=== PATIENT | male | born 1960 | race Caucasian/White ===

== ENCOUNTER 2016-10-28 16:02 | Emergency (ER) | payer MEDICAID, OTHER ==
[~2016-10-28] VITALS: Ht 193 cm; Wt 99.8 kg
[~2016-10-28 16:02] MED LIST: BENTYL10 MG ORAL; NKM; ZOFRAN4 M3 ORAL
[2016-10-28] MEDS ORDERED: Lidocaine 1% MPF 10mg/ml 5ml ONE (16:19)
[2016-10-28] MEDS ORDERED: Lidocaine 1% MPF 10mg/ml 5ml IM ONE (16:30)
[2016-10-28] MEDS ORDERED: BACTRIM DS TAB1 EAC1 ORAL ×3 (16:39→18:18)
[2016-10-28 16:40] VITALS: BP 145/85
[2016-10-28 16:45] VITALS: BP 145/85
--- NOTE | 2016-10-28 17:32 | Emergency Room Report ---
History of Present Illness General Chief Complaint: Skin Rash/Abscess Source: Patient Present Illness HPI The patient is a 56-year-old male presenting for possible insect bite to the left hand. The patient states that he first noticed pain and redness to the left hand last night and woke up this morning with swelling to the area. The patient states he is now experiencing an 8/10 dull ache to the area and is worse with touch. The patient denies any other symptoms including nausea, vomiting, fever, chills, dizziness, blurred vision, CP, SOB Allergies: Coded Allergies: No Known Allergies (Unverified , 08/11/16) Patient History Past Medical History: see triage record Pertinent Family History: none Reviewed Nursing Documentation: PMH: Agreed, PSxH: Agreed Nursing Documentation-PMH Past Medical History: No History, Except For Hx Cardiac Problems: Yes - hep c Review of Systems All Other Systems: negative except mentioned in HPI Physical Exam Vital Signs Date Time Temp Pulse Resp B/P Pulse Ox O2 Delivery O2 Flow Rate FiO2 10/28/16 16:12 97.3 93 20 180/105 97 Room Air Sp02 EP Interpretation: reviewed, normal General Appearance: no apparent distress, alert, GCS 15, non-toxic Head: normocephalic, atraumatic Eyes: bilateral eye PERRL, bilateral eye normal inspection Musculoskeletal: back normal, digits/nails normal, gait/station normal, normal range of motion, tender - TTP over L wrist Neurologic: alert, oriented x3, responsive, motor strength/tone normal, sensory intact, speech normal Psychiatric: judgement/insight normal, memory normal, mood/affect normal, no suicidal/homicidal ideation Skin: normal turgor, other - L wrist: 2cm elevated vessicle. TTP. Surrounded by erythema. Central opening. Lymphatic: no adenopathy Procedures Incision and Drainage Incision and Drainage : Consent: Verbal Site: L wrist Blade Size: 11 I & D Procedure: betadine prep, sterile drapes applied, sterile dressing applied Wound Location: upper extremity Wound's Depth, Shape: superficial Wound Length (cm): 2 Wound Explored: contaminated Irrigated w/ Saline (ccs): 100 Anesthesia: 1% Lidocaine Volume Anesthetic (ccs): 2 Splint Applied?: No Sling Applied?: No Patient Tolerated: Well Complications: None Medical Decision Making PA Attestation Dr. Morrow is my supervising physician. Patient management was discussed with my supervising physician Diagnostic Impression: Primary Impression: Abscess ER Course The patient is a 56-year-old male presenting for possible insect bite to the left hand. Ddx considered include but not limited to insect bite, contact dermatitis, eczema, cellulitis, abscess PE: afebrile. NAD L wrist: 2cm vesicle. Fluctuant. TTP. Surrounded by erythema. Central opening. No bleeding or discharge. Betadine prep was used to clean the skin and surrounding area. One percent lidocaine without epinephrine was used to anesthetize the are of planned incision. A #11 blade was used to make an incision in the central area of fluctuance approximately 1/3 the size of the diameter of the abcess. Once the incision was made, purulent material was expressed with blood. Blunt dissection was then used to release loculations and expressed more purulent material. Once only blood appeard to be expressed from the incision, normal saline was used to irrigate the inside of the abscess. The wound was then cleaned and sterile dressing applied. The patient is discharged home with a prescription for Bactrim and will followup with primary care doctor. ER precautions given Last Vital Signs Date Time Temp Pulse Resp B/P Pulse Ox O2 Delivery O2 Flow Rate FiO2 10/28/16 16:45 97.3 89 16 145/85 99 Room Air Status: improved Disposition: HOME, SELF-CARE Condition: Improved Scripts Trimethoprim/Sulfamethoxazole 160/800* (BACTRIM DS TABLET*) 1 Each Tablet 1 TAB ORAL TWICE A DAY, #14 TAB Prov: GLADYS CORONADO 10/28/16 Referrals: [facility],REFERRING (PCP) Patient Instructions: Abscess Additional Instructions: I discussed my findings with the patient. All questions and concerns have been answered. Treatment and medication compliance have been addressed. I advised the patient that they need to follow up with PMD in 3-5 days. Return to ED if symptoms worsen, new symptoms arise, or if needed for any reason. Patient verbalized understanding of discharge instructions. GLADYS CORONADO Oct 28, 2016 17:32
== END 2016-10-28 16:45 | disposition home or self-care (01) ==
LOC: EMR 16:27
DX: L02.512 Cutaneous abscess of left hand (principal)
CPT/HCPCS: 10060

== ENCOUNTER 2016-10-30 12:07 | Inpatient (IN) | payer OTHER ==
[~2016-10-30] VITALS: Ht 193 cm; Wt 99.8 kg
[~2016-10-30 12:07] MED LIST changes: +BACTRIM DS TAB1 EAC1 ORAL
[2016-10-30] MEDS ORDERED: Bacitracin Oint UD TOPIC ONE (12:45)
[2016-10-30] MEDS ORDERED: Ketorolac 30mg Inj IV ONE (12:45)
[2016-10-30] MEDS ORDERED: Vancomycin 1.5gm/D5W 300ml 325 ML IVPB ONE (12:45)
[2016-10-30] MEDS ORDERED: metroNIDAZOLE 500mg 100 ML IV SCH (12:45)
[2016-10-30] MEDS ORDERED: fentaNYL 100 mcg/2 mL IV ONE (12:45)
--- NOTE | 2016-10-30 12:52 | Emergency Room Report ---
History of Present Illness General Chief Complaint: Skin Rash/Abscess Source: Patient Present Illness HPI Patient returns with left arm swelling and redness of L arm with increased pain. Began a couple days ago and is on Bactrim and Keflex. The arm is worsening. Also has some lymph nodes that are swollen and his axilla on that side. His last tetanus was 2011. The pain is worsened. It throbs when he has it dependent. Pain 10/10 aching pressure. No numbness. Some radiation up arm. The patient has hepatitis C. He denies IVDA. Craig - R handed. No INFANTE, NVD, dysuria, back pain, chest pain, cough, SOB. Allergies: Coded Allergies: No Known Allergies (Unverified , 08/11/16) Patient History Past Medical History: see triage record Social History: Denies: drug use, smoking Social History Narrative Craig Reviewed Nursing Documentation: PMH: Agreed, PSxH: Agreed Nursing Documentation-PMH Past Medical History: No History, Except For Hx Cardiac Problems: Yes - hep c Review of Systems All Other Systems: negative except mentioned in HPI Physical Exam Vital Signs Date Time Temp Pulse Resp B/P Pulse Ox O2 Delivery O2 Flow Rate FiO2 10/30/16 12:26 97.9 95 18 147/95 98 Room Air Sp02 EP Interpretation: reviewed, normal General Appearance: well appearing, no apparent distress, GCS 15 Head: normocephalic Eyes: bilateral eye PERRL, bilateral eye normal inspection, bilateral eye other - pupils small ENT: moist mucus membranes Neck: supple Respiratory: lungs clear, normal breath sounds Cardiovascular #1: regular rate, rhythm Cardiovascular #2: 2+ radial (R) Gastrointestinal: normal inspection, normal bowel sounds, non tender, no mass, non-distended Musculoskeletal: back normal, gait/station normal, inflammation, swelling, tender - more volar surface of forearm - TTP - fairly severe. PROM without significant increase in pain. Neurologic: alert, oriented x3, motor strength/tone normal, sensory intact, normal gait, speech normal Psychiatric: mood/affect normal Skin: warm/dry, other - tatoos, L forearm with more volar erythema, no lymphangitis. Area on ulnar volar wrist where I and D performed. Lymphatic: other - Axillary node tender L Medical Decision Making Diagnostic Impression: Primary Impression: Cellulitis of arm, left Additional Impressions: Elevated lactic acid level Outpatient antibiotic failure Sepsis Qualified Codes: A41.9 - Sepsis, unspecified organism ER Course Patient with increased arm pain, erythema and swelling after I and D 2 days ago. Concern over possible necrotizing fasciitis, cellulitis, abscess. No evidence of compartment syndrome at this time. The patient's been taking antibiotics and his arm is worsening. A CT is ordered and along with laboratory. Triple antibiotics are begun. The patient needs IV anabiotic says his outpatient anabiotic regimen has failed. Analgesia also given. Labs remarkable for elevated WBC and lactate. CT with STS, no abscess. Contact Dr. Deal for admission. Contact Dr. Birch for consultation. Laboratory Tests Test 10/30/16 12:45 10/30/16 12:55 10/30/16 13:10 White Blood Count 13.3 K/UL (4.8-10.8) H Red Blood Count 5.05 M/UL (4.70-6.10) Hemoglobin 15.4 G/DL (14.2-18.0) Hematocrit 47.3 % (42.0-52.0) Mean Corpuscular Volume 94 FL (80-99) Mean Corpuscular Hemoglobin 30.5 PG (27.0-31.0) Mean Corpuscular Hemoglobin Concent 32.6 G/DL (32.0-36.0) Red Cell Distribution Width 12.7 % (11.6-14.8) Platelet Count 221 K/UL (150-450) Mean Platelet Volume 7.4 FL (6.5-10.1) Neutrophils (%) (Auto) 70.7 % (45.0-75.0) Lymphocytes (%) (Auto) 15.8 % (20.0-45.0) L Monocytes (%) (Auto) 10.7 % (1.0-10.0) H Eosinophils (%) (Auto) 1.9 % (0.0-3.0) Basophils (%) (Auto) 0.8 % (0.0-2.0) Prothrombin Time 10.2 SEC (9.30-11.50) Prothrombin Time INR 1.0 (0.9-1.1) PTT 29 SEC (23-33) Sodium Level 139 mEQ/L (135-145) Potassium Level 4.0 mEQ/L (3.4-4.9) Chloride Level 98 mEQ/L (98-107) Carbon Dioxide Level 28 mEQ/L (20-30) Anion Gap 13 (5-15) Blood Urea Nitrogen 8 mg/dL (7-23) Creatinine 0.9 mg/dL (0.7-1.2) Estimate Glomerular Filtration Rate > 60 mL/min (>60) Glucose Level 112 mg/dL (74-106) H Lactic Acid Level 3.00 mmol/L (0.66-2.22) H Calcium Level 9.7 mg/dL (8.6-10.2) Total Bilirubin 0.4 mg/dL (0.0-1.2) Aspartate Amino Transferase (AST) 38 U/L (5-40) Alanine Aminotransferase (ALT) 48 U/L (3-41) H Alkaline Phosphatase 109 U/L (40-129) Total Creatine Kinase 61 U/L (38-174) Troponin I < 0.30 ng/mL (<=0.30) Pro-B-Type Natriuretic Peptide 267 pg/mL (0-125) H Total Protein 7.5 g/dL (6.6-8.7) Albumin 3.9 g/dL (3.5-5.2) Globulin 3.6 g/dL Albumin/Globulin Ratio 1.0 (1.0-2.7) Urine Color Yellow Urine Appearance Clear Urine pH 6 (4.5-8.0) Urine Specific [place] 1.015 (1.005-1.035) Urine Protein Negative (NEGATIVE) Urine Glucose (UA) Negative (NEGATIVE) Urine Ketones Negative (NEGATIVE) Urine Occult Blood Negative (NEGATIVE) Urine Nitrite Negative (NEGATIVE) Urine Bilirubin Negative (NEGATIVE) Urine Urobilinogen 4 MG/DL (0.0-1.0) H Urine Leukocyte Esterase 1+ (NEGATIVE) H Urine RBC 0 /HPF (0 - 0) Urine WBC 2-4 /HPF (0 - 0) Urine Squamous Epithelial Cells None /LPF (NONE/OCC) Urine Bacteria None /HPF (NONE) EKG Diagnostic Results Rate: normal Rhythm: NSR ST Segments: no acute changes Rhythm Strip Diag. Results EP Interpretation: yes Rhythm: NSR, no PVC's, no ectopy Chest X-Ray Diagnostic Results EP Interpretation: Yes Findings: no consolidation, no effusion, no pneumothorax, no acute cardiopulmonary disease Number of Views: 1 CT/MRI/US Diagnostic Results CT/MRI/US Diagnostic Results : Imaging Test Ordered: forearm Impression Deep STS Status: improved Disposition: ADMITTED INPATIENT Condition: Serious Moe Lobo M.D. Oct 30, 2016 12:52
[2016-10-30] MEDS ORDERED: Zosyn 4.5gm inj ONE (13:24)
[2016-10-30 13:31] LABS: BASOPHILS % (AUTO) 0.8 % (0.0-2.0); EOSINOPHILS % (AUTO) 1.9 % (0.0-3.0); LYMPHOCYTES % (AUTO) 15.8 % (20.0-45.0); MEAN CORPUSCULAR HEMOGLOBIN 30.5 PG (27.0-31.0); MEAN CORPUSCULAR HGB CONC 32.6 G/DL (32.0-36.0); MEAN CORPUSCULAR VOLUME 94 FL (80-99); MEAN PLATELET VOLUME 7.4 FL (6.5-10.1); MONOCYTES % (AUTO) 10.7 % (1.0-10.0); NEUTROPHILS % (AUTO) 70.7 % (45.0-75.0); PLATELET COUNT 221 K/UL (150-450); RED BLOOD COUNT 5.05 M/UL (4.70-6.10); RED CELL DISTRIBUTION WIDTH 12.7 % (11.6-14.8); WHITE BLOOD COUNT 13.3 K/UL (4.8-10.8)
[2016-10-30 13:35] LABS: PROTHROMBIN TIME 10.2 SEC (9.30-11.50)
[2016-10-30 13:42] LABS: ALANINE AMINOTRANSFERASE 48 U/L (3-41); ANION GAP 13 (5-15); ASPARTATE AMINO TRANSFERASE 38 U/L (5-40); CALCIUM 9.7 mg/dL (8.6-10.2); CARBON DIOXIDE 28 mEQ/L (20-30); CHLORIDE 98 mEQ/L (98-107); CREATININE 0.9 mg/dL (0.7-1.2); GLOMERULAR FILTRATION RATE > 60 mL/min (>60); HEMOLYSIS 5; SODIUM 139 mEQ/L (135-145); TOTAL PROTEIN 7.5 g/dL (6.6-8.7)
[2016-10-30 13:45] LABS: REFLEX LACTIC ACID YES OR NO YES
[2016-10-30 13:51] LABS: TROPONIN I < 0.30 ng/mL (<=0.30)
[2016-10-30] MEDS ORDERED: Piperacillin/Tazobactam 4.5 GM in NS 110 ML IV SCH (14:00)
[2016-10-30 14:07] LABS: APPEARANCE,URINE CLEAR; KETONES,URINE NEGATIVE (NEGATIVE); LEUKOCYTE ESTERASE ,URINE 1+ (NEGATIVE); NITRITE,URINE NEGATIVE (NEGATIVE); PH,URINE 6 (4.5-8.0); PROTEIN,URINE NEGATIVE (NEGATIVE); UROBILINOGEN,URINE 4 MG/DL (0.0-1.0)
[2016-10-30 14:15] LABS: RBC,URINE 0 /HPF (0 - 0)
[2016-10-30 14:30] VITALS: BP 127/72
[2016-10-30] MEDS ORDERED: Naloxone 1mg/ml 2ml ONE ×2 (15:58→16:01)
[2016-10-30 16:09] VITALS: BP 133/68
[2016-10-30 16:30] VITALS: BP 122/70
[2016-10-30] MEDS ORDERED: Zolpidem 5mg tab ORAL PRN (18:30)
[2016-10-30] MEDS ORDERED: Mylanta II UD 30ml ORAL PRN (18:30)
[2016-10-30] MEDS ORDERED: LORazepam Inj 2mg/ml 1ml IV PRN (18:30)
[2016-10-30] MEDS ORDERED: Miralax 17gm pkt ORAL PRN (18:30)
--- NOTE | 2016-10-30 18:31 | Infectious Diseases Prog Note ---
Assessment/Plan Problems: (1) Left arm cellulitis Assessment & Plan: with possible necrotizing fasciitis , recommend immediate surgical consultation for possible surgical debriedment , will start zosyn, vancomycin and clindamycin empirically for now , monitor SED rate (2) Sepsis Assessment & Plan: due to sever arm infection, will send blood culture and start wide spectrum antibiotics therapy (3) HCV (hepatitis C virus) Assessment & Plan: will order viral load and genotype. Subjective Allergies: Coded Allergies: No Known Allergies (Unverified , 08/11/16) Objective Vital Signs Last 24 Hour Vital Signs Date Time Temp Pulse Resp B/P Pulse Ox O2 Delivery O2 Flow Rate FiO2 10/30/16 16:30 96.4 67 18 122/70 100 Room Air 10/30/16 16:11 97.8 76 17 133/68 100 Room Air 10/30/16 16:09 97.8 76 17 133/68 100 Room Air 10/30/16 14:30 97.9 73 19 127/72 100 Room Air 10/30/16 13:56 97.8 10/30/16 13:56 97.8 10/30/16 12:26 97.9 95 18 147/95 98 Room Air Height (Feet): 6 Height (Inches): 4.00 Weight (Pounds): 220 Laboratory Tests Test 10/30/16 12:45 10/30/16 12:55 10/30/16 13:10 10/30/16 15:18 White Blood Count 13.3 K/UL (4.8-10.8) H Red Blood Count 5.05 M/UL (4.70-6.10) Hemoglobin 15.4 G/DL (14.2-18.0) Hematocrit 47.3 % (42.0-52.0) Mean Corpuscular Volume 94 FL (80-99) Mean Corpuscular Hemoglobin 30.5 PG (27.0-31.0) Mean Corpuscular Hemoglobin Concent 32.6 G/DL (32.0-36.0) Red Cell Distribution Width 12.7 % (11.6-14.8) Platelet Count 221 K/UL (150-450) Mean Platelet Volume 7.4 FL (6.5-10.1) Neutrophils (%) (Auto) 70.7 % (45.0-75.0) Lymphocytes (%) (Auto) 15.8 % (20.0-45.0) L Monocytes (%) (Auto) 10.7 % (1.0-10.0) H Eosinophils (%) (Auto) 1.9 % (0.0-3.0) Basophils (%) (Auto) 0.8 % (0.0-2.0) Prothrombin Time 10.2 SEC (9.30-11.50) Prothromb Time International Ratio 1.0 (0.9-1.1) Activated Partial Thromboplast Time 29 SEC (23-33) Sodium Level 139 mEQ/L (135-145) Potassium Level 4.0 mEQ/L (3.4-4.9) Chloride Level 98 mEQ/L (98-107) Carbon Dioxide Level 28 mEQ/L (20-30) Anion Gap 13 (5-15) Blood Urea Nitrogen 8 mg/dL (7-23) Creatinine 0.9 mg/dL (0.7-1.2) Estimat Glomerular Filtration Rate > 60 mL/min (>60) Glucose Level 112 mg/dL (74-106) H Lactic Acid Level 3.00 mmol/L (0.66-2.22) H 0.90 mmol/L (0.66-2.22) Calcium Level 9.7 mg/dL (8.6-10.2) Total Bilirubin 0.4 mg/dL (0.0-1.2) Aspartate Amino Transf (AST/SGOT) 38 U/L (5-40) Alanine Aminotransferase (ALT/SGPT) 48 U/L (3-41) H Alkaline Phosphatase 109 U/L (40-129) Total Creatine Kinase 61 U/L (38-174) Troponin I < 0.30 ng/mL (<=0.30) Pro-B-Type Natriuretic Peptide 267 pg/mL (0-125) H Total Protein 7.5 g/dL (6.6-8.7) Albumin 3.9 g/dL (3.5-5.2) Globulin 3.6 g/dL Albumin/Globulin Ratio 1.0 (1.0-2.7) Urine Color Yellow Urine Appearance Clear Urine pH 6 (4.5-8.0) Urine Specific [place] 1.015 (1.005-1.035) Urine Protein Negative (NEGATIVE) Urine Glucose (UA) Negative (NEGATIVE) Urine Ketones Negative (NEGATIVE) Urine Occult Blood Negative (NEGATIVE) Urine Nitrite Negative (NEGATIVE) Urine Bilirubin Negative (NEGATIVE) Urine Urobilinogen 4 MG/DL (0.0-1.0) H Urine Leukocyte Esterase 1+ (NEGATIVE) H Urine RBC 0 /HPF (0 - 0) Urine WBC 2-4 /HPF (0 - 0) Urine Squamous Epithelial Cells None /LPF (NONE/OCC) Urine Bacteria None /HPF (NONE) Current Medications Medications (Trade) Dose Ordered Sig/Aubrey Route PRN Reason Start Time Stop Time Status Last Admin Dose Admin Acetaminophen (Tylenol) 650 mg Q4H PRN ORAL fever 10/30/16 18:30 11/29/16 18:29 Al Hydroxide/Mg Hydroxide (Mylanta II) 30 ml Q6H PRN ORAL dyspepsia 10/30/16 18:30 11/29/16 18:29 Cefepime HCl/ Dextrose (Maxipime/D5W) 55 ml @ 110 mls/hr EVERY 8 HOURS IV 10/30/16 22:00 11/06/16 21:59 Dextrose (Dextrose 50%) STAT PRN IV Hypoglycemia 10/30/16 18:30 11/29/16 18:29 Heparin Sodium (Porcine) (Heparin 5000 units/ml) 5,000 units EVERY 12 HOURS SUBQ 10/30/16 21:00 11/29/16 20:59 Lorazepam (Ativan 2mg/ml 1ml) 0.5 mg Q4H PRN IV For Anxiety 10/30/16 18:30 11/06/16 18:29 Morphine Sulfate (Morphine Sulfate) 1 mg Q4H PRN IVP For Pain 10/30/16 18:45 11/06/16 18:44 Ondansetron HCl (Zofran) 4 mg Q6H PRN IVP Nausea & Vomiting 10/30/16 18:30 11/29/16 18:29 Polyethylene Glycol (Miralax) 17 gm HSPRN PRN ORAL Constipation 10/30/16 18:30 11/29/16 18:29 Vancomycin HCl 1 ea 1 ea DAILY PRN MISC Per rx protocol 10/30/16 18:30 11/29/16 18:29 UNV Zolpidem Tartrate (Ambien) 5 mg HSPRN PRN ORAL Insomnia 10/30/16 18:30 11/29/16 18:29 Tashi Rinaldi M.D. Oct 30, 2016 18:31
[2016-10-30] MEDS: Morphine Sulfate 2mg/ml Inj IVP PRN (19:36)
[2016-10-30 20:00] VITALS: BP 149/79
[2016-10-30] MEDS: Vitamin A&D Oint 2oz Tube TOPIC SCH (21:00)
[2016-10-30] MEDS ORDERED: Vitamin A&D Oint 2oz Tube TOPIC SCH (21:00)
--- NOTE | 2016-10-30 21:05 | Wound Care Consultation ---
Wound Assessment Wound Assessment : Wound Present on Admission: Yes New Wound: No Status Change of Wound: No Wound Location Body Site Modif: right Wound Location Body Site: wrist Wound Type: abscess - cellulitis of the left arm Jose A Test: Does not Jose A Abscess: Boil Wound Length: 3.0 Wound Width: 3.0 Wound Drainage Description: Serosanguineous Wound Drainage Amount: Moderate Tissue Surrounding Wound: Erythemic Wound General Appearance: Reddened, Draining Wound Comment #1 Left arm cellulitis with open abscess on the wrist. Pt on IV ATB therapy for cellulitis of the left arm. Recommendation -Keep clean and dry -Cleanse with saline pat dry apply adaptic cover with dry drg -Assess and f/u with MD for any changes LIAM PEÑA RN Oct 30, 2016 21:05
[2016-10-30] MEDS: Clindamycin 900mg 50 ML IV SCH (21:08)
[2016-10-30] MEDS: Heparin 5000 units/ml inj SUBQ SCH (21:19)
[2016-10-30] MEDS: Vancomycin 1.25 GM in D5W 275 ML IVPB SCH (21:52)
[2016-10-30] MEDS ORDERED: Cefepime HCl 1 GM in D5W 55 ML IV SCH (22:00)
[2016-10-30] MEDS: Piperacillin/Tazobactam 4.5 GM in D5W 110 ML IVPB SCH (23:40)
[2016-10-31] VITALS: BP 141/79
[2016-10-31] MEDS: Clindamycin 900mg 50 ML IV SCH ×3 (03:08→19:57)
[2016-10-31 04:00] VITALS: BP 139/78
[2016-10-31] MEDS: Vancomycin 1.25 GM in D5W 275 ML IVPB SCH (04:05)
[2016-10-31] MEDS: Piperacillin/Tazobactam 4.5 GM in D5W 110 ML IVPB SCH ×3 (06:42→23:18)
[2016-10-31 06:53] LABS: BASOPHILS % (AUTO) 0.8 % (0.0-2.0); EOSINOPHILS % (AUTO) 5.1 % (0.0-3.0); LYMPHOCYTES % (AUTO) 21.3 % (20.0-45.0); MEAN CORPUSCULAR HEMOGLOBIN 31.3 PG (27.0-31.0); MEAN CORPUSCULAR HGB CONC 33.6 G/DL (32.0-36.0); MEAN CORPUSCULAR VOLUME 93 FL (80-99); MEAN PLATELET VOLUME 7.1 FL (6.5-10.1); MONOCYTES % (AUTO) 10.1 % (1.0-10.0); NEUTROPHILS % (AUTO) 62.8 % (45.0-75.0); PLATELET COUNT 198 K/UL (150-450); RED BLOOD COUNT 4.36 M/UL (4.70-6.10); RED CELL DISTRIBUTION WIDTH 12.4 % (11.6-14.8); WHITE BLOOD COUNT 9.3 K/UL (4.8-10.8)
[2016-10-31 07:06] LABS: ALANINE AMINOTRANSFERASE 41 U/L (3-41); ANION GAP 13 (5-15); ASPARTATE AMINO TRANSFERASE 36 U/L (5-40); CALCIUM 8.9 mg/dL (8.6-10.2); CARBON DIOXIDE 27 mEQ/L (20-30); CHLORIDE 99 mEQ/L (98-107); CHOLESTEROL 140 mg/dL (< 200); CHOLESTEROL/HDL RATIO 1.7 (3.3-4.4); CREATININE 0.9 mg/dL (0.7-1.2); GLOMERULAR FILTRATION RATE > 60 mL/min (>60); HEMOLYSIS 9; LDL CHOLESTEROL (CALC.) 52 mg/dL (60-99); POTASSIUM 4.3 mEQ/L (3.4-4.9); SODIUM 139 mEQ/L (135-145); TOTAL PROTEIN 6.4 g/dL (6.6-8.7)
[2016-10-31 08:00] VITALS: BP 136/82
[2016-10-31 08:01] LABS: HEMOGLOBIN A1C 5.4 % (< 6.0)
[2016-10-31] MEDS: Morphine Sulfate 2mg/ml Inj IVP PRN (08:47)
[2016-10-31] MEDS: Heparin 5000 units/ml inj SUBQ SCH ×2 (08:50→20:57)
[2016-10-31] MEDS: Vitamin A&D Oint 2oz Tube TOPIC SCH ×2 (08:51→20:52)
--- NOTE | 2016-10-31 08:56 | Consultation ---
Consult Note Consult Note 56 yo male with small skin abrasion lft volar wrist, now with Rt UE cellulitis. improving on IV abx No abscess noted on CT Assessment/Plan Lft UE cellulitis without fluid collection/abscess rec non operative tx continue iv abx per ANIYAH WASHINGTON Oct 31, 2016 08:55
--- NOTE | 2016-10-31 10:11 | Diagnostic Imaging Report ---
Indication: Chest pain, cough Technique: One view of the chest Comparison: none Findings: Lungs and pleural spaces are clear. Heart size is normal. Impression: No acute process This agrees with the preliminary interpretation provided by the emergency room physician
[2016-10-31 12:00] VITALS: BP 149/79
--- NOTE | 2016-10-31 12:07 | Consultation ---
History of Present Illness General Date patient seen: Oct 31, 2016 Chief Complaint: Skin Rash/Abscess Referring physician: Dr Deal Reason for Consultation: Sepsis Present Illness HPI 56 yo man with pmhx hepatitis C, urinary tract infection, and left arm abscess incalcitrant to home antibiotics, patient presented to [facility] emergency room after experiencing increasing pain and swelling fever and chills probably as a result of worsening left arm abscess. The patient's hospitalist asked me to consult on this case due the severity of the patients illness and multiple complicating medical co-morbidities. Empiric IV antibiotics have been initiated with anti-pyretics and agressive fluid resuscitation to maintain a physiologically acceptable blood pressure. commercial specialist also has been requested aswell as infectious disease to help treat the patients serious medical condition. Allergies: Coded Allergies: No Known Allergies (Unverified , 08/11/16) Medication History Scheduled Amoxicillin/Potassium Clav 875-125* (Augmentin 875-125 Tablet*), 1 TAB ORAL TWICE A DAY, (Reported) Doxycycline Monohydrate* (Doxycycline Monohydrate*), 100 MG ORAL TWICE A DAY, ( Reported) Patient History Healthcare decision maker N Resuscitation status Full Code Advanced Directive on File Past Medical/Surgical History Past Medical/Surgical History: (1) Abscess (2) HCV (hepatitis C virus) (3) Left arm cellulitis (4) Sepsis (5) UTI (urinary tract infection) Review of Systems Constitutional: Reports: chills, fever, malaise, weakness Musculoskeletal: Reports: joint pain, joint swelling, muscle pain, muscle stiffness Physical Exam General Appearance: lethargic, confused, moderate distress Lines, tubes and drains: peripheral HEENT: normocephalic, atraumatic, anicteric, PERRL Neck: non-tender, normal alignment, supple, normal inspection Respiratory/Chest: chest wall non-tender, normal breath sounds, no respiratory distress, no accessory muscle use Breasts: no masses Cardiovascular/Chest: no JVD, tachycardia Abdomen: normal bowel sounds, non tender, soft, no organomegaly Genitourinary/Rectal: normal genital exam, normal rectal exam Extremities: inflammation, moderate edema, other - left arm abscess and inflammation and swelling Skin Exam: palled, rash 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, responsive, disoriented Last 24 Hour Vital Signs Date Time Temp Pulse Resp B/P Pulse Ox O2 Delivery O2 Flow Rate FiO2 10/31/16 09:17 97.5 10/31/16 08:00 97.5 80 18 136/82 96 Room Air 10/31/16 04:00 97.8 92 18 139/78 97 Room Air 10/31/16 00:00 97.7 91 18 141/79 95 Room Air 10/30/16 20:00 97.3 73 20 149/79 100 Room Air 10/30/16 16:30 96.4 67 18 122/70 100 Room Air 10/30/16 16:11 97.8 76 17 133/68 100 Room Air 10/30/16 16:09 97.8 76 17 133/68 100 Room Air 10/30/16 14:30 97.9 73 19 127/72 100 Room Air 10/30/16 13:56 97.8 10/30/16 13:56 97.8 10/30/16 12:26 97.9 95 18 147/95 98 Room Air Intake and Output 10/30/16 10/31/16 19:00 07:00 Intake Total 3535 ml 1267.50 ml Balance 3535 ml 1267.50 ml Intake Oral 0 ml 810 ml IV Total 3535 ml 457.50 ml # Voids 3 Laboratory Tests Test 10/30/16 12:45 10/30/16 12:55 10/30/16 13:10 10/30/16 15:18 White Blood Count 13.3 K/UL (4.8-10.8) H Red Blood Count 5.05 M/UL (4.70-6.10) Hemoglobin 15.4 G/DL (14.2-18.0) Hematocrit 47.3 % (42.0-52.0) Mean Corpuscular Volume 94 FL (80-99) Mean Corpuscular Hemoglobin 30.5 PG (27.0-31.0) Mean Corpuscular Hemoglobin Concent 32.6 G/DL (32.0-36.0) Red Cell Distribution Width 12.7 % (11.6-14.8) Platelet Count 221 K/UL (150-450) Mean Platelet Volume 7.4 FL (6.5-10.1) Neutrophils (%) (Auto) 70.7 % (45.0-75.0) Lymphocytes (%) (Auto) 15.8 % (20.0-45.0) L Monocytes (%) (Auto) 10.7 % (1.0-10.0) H Eosinophils (%) (Auto) 1.9 % (0.0-3.0) Basophils (%) (Auto) 0.8 % (0.0-2.0) Prothrombin Time 10.2 SEC (9.30-11.50) Prothromb Time International Ratio 1.0 (0.9-1.1) Activated Partial Thromboplast Time 29 SEC (23-33) Sodium Level 139 mEQ/L (135-145) Potassium Level 4.0 mEQ/L (3.4-4.9) Chloride Level 98 mEQ/L (98-107) Carbon Dioxide Level 28 mEQ/L (20-30) Anion Gap 13 (5-15) Blood Urea Nitrogen 8 mg/dL (7-23) Creatinine 0.9 mg/dL (0.7-1.2) Estimat Glomerular Filtration Rate > 60 mL/min (>60) Glucose Level 112 mg/dL (74-106) H Lactic Acid Level 3.00 mmol/L (0.66-2.22) H 0.90 mmol/L (0.66-2.22) Calcium Level 9.7 mg/dL (8.6-10.2) Total Bilirubin 0.4 mg/dL (0.0-1.2) Aspartate Amino Transf (AST/SGOT) 38 U/L (5-40) Alanine Aminotransferase (ALT/SGPT) 48 U/L (3-41) H Alkaline Phosphatase 109 U/L (40-129) Total Creatine Kinase 61 U/L (38-174) Troponin I < 0.30 ng/mL (<=0.30) Pro-B-Type Natriuretic Peptide 267 pg/mL (0-125) H Total Protein 7.5 g/dL (6.6-8.7) Albumin 3.9 g/dL (3.5-5.2) Globulin 3.6 g/dL Albumin/Globulin Ratio 1.0 (1.0-2.7) Urine Color Yellow Urine Appearance Clear Urine pH 6 (4.5-8.0) Urine Specific [place] 1.015 (1.005-1.035) Urine Protein Negative (NEGATIVE) Urine Glucose (UA) Negative (NEGATIVE) Urine Ketones Negative (NEGATIVE) Urine Occult Blood Negative (NEGATIVE) Urine Nitrite Negative (NEGATIVE) Urine Bilirubin Negative (NEGATIVE) Urine Urobilinogen 4 MG/DL (0.0-1.0) H Urine Leukocyte Esterase 1+ (NEGATIVE) H Urine RBC 0 /HPF (0 - 0) Urine WBC 2-4 /HPF (0 - 0) Urine Squamous Epithelial Cells None /LPF (NONE/OCC) Urine Bacteria None /HPF (NONE) Test 10/31/16 05:10 10/31/16 10:45 White Blood Count 9.3 K/UL (4.8-10.8) Red Blood Count 4.36 M/UL (4.70-6.10) L Hemoglobin 13.7 G/DL (14.2-18.0) L Hematocrit 40.7 % (42.0-52.0) L Mean Corpuscular Volume 93 FL (80-99) Mean Corpuscular Hemoglobin 31.3 PG (27.0-31.0) H Mean Corpuscular Hemoglobin Concent 33.6 G/DL (32.0-36.0) Red Cell Distribution Width 12.4 % (11.6-14.8) Platelet Count 198 K/UL (150-450) Mean Platelet Volume 7.1 FL (6.5-10.1) Neutrophils (%) (Auto) 62.8 % (45.0-75.0) Lymphocytes (%) (Auto) 21.3 % (20.0-45.0) Monocytes (%) (Auto) 10.1 % (1.0-10.0) H Eosinophils (%) (Auto) 5.1 % (0.0-3.0) H Basophils (%) (Auto) 0.8 % (0.0-2.0) Erythrocyte Sedimentation Rate 22 MM/HR (0-20) H Sodium Level 139 mEQ/L (135-145) Potassium Level 4.3 mEQ/L (3.4-4.9) Chloride Level 99 mEQ/L (98-107) Carbon Dioxide Level 27 mEQ/L (20-30) Anion Gap 13 (5-15) Blood Urea Nitrogen 12 mg/dL (7-23) Creatinine 0.9 mg/dL (0.7-1.2) Estimat Glomerular Filtration Rate > 60 mL/min (>60) Glucose Level 131 mg/dL (74-106) H Hemoglobin A1c 5.4 % (< 6.0) Calcium Level 8.9 mg/dL (8.6-10.2) Total Bilirubin 0.3 mg/dL (0.0-1.2) Aspartate Amino Transf (AST/SGOT) 36 U/L (5-40) Alanine Aminotransferase (ALT/SGPT) 41 U/L (3-41) Alkaline Phosphatase 97 U/L (40-129) Total Protein 6.4 g/dL (6.6-8.7) L Albumin 3.3 g/dL (3.5-5.2) L Globulin 3.1 g/dL Albumin/Globulin Ratio 1.0 (1.0-2.7) Triglycerides Level 35 mg/dL (< 150) Cholesterol Level 140 mg/dL (< 200) LDL Cholesterol 52 mg/dL (60-99) L HDL Cholesterol 81 mg/dL (> 60) H Cholesterol/HDL Ratio 1.7 (3.3-4.4) L Thyroid Stimulating Hormone (TSH) 2.290 uIU/mL (0.300-4.500) Vancomycin Level Trough 10.1 ug/mL (5.0-12.0) Height (Feet): 6 Height (Inches): 4.00 Weight (Pounds): 220 Medications Current Medications Medications (Trade) Dose Ordered Sig/Aubrey Route PRN Reason Start Time Stop Time Status Last Admin Dose Admin Acetaminophen (Tylenol) 650 mg Q4H PRN ORAL fever 10/30/16 18:30 11/29/16 18:29 Al Hydroxide/Mg Hydroxide (Mylanta II) 30 ml Q6H PRN ORAL dyspepsia 10/30/16 18:30 11/29/16 18:29 Clindamycin HCl/ Dextrose (Cleocin 900mg) 50 ml @ 100 mls/hr Q8H IV 10/30/16 20:00 11/06/16 19:59 10/31/16 03:08 Dextrose (Dextrose 50%) STAT PRN IV Hypoglycemia 10/30/16 18:30 11/29/16 18:29 Heparin Sodium (Porcine) (Heparin 5000 units/ml) 5,000 units EVERY 12 HOURS SUBQ 10/30/16 21:00 11/29/16 20:59 10/31/16 08:50 Lorazepam (Ativan 2mg/ml 1ml) 0.5 mg Q4H PRN IV For Anxiety 10/30/16 18:30 11/06/16 18:29 Morphine Sulfate (Morphine Sulfate) 1 mg Q4H PRN IVP For Pain 10/30/16 18:45 11/06/16 18:44 10/31/16 08:47 Ondansetron HCl (Zofran) 4 mg Q6H PRN IVP Nausea & Vomiting 10/30/16 18:30 11/29/16 18:29 Piperacillin Sod/ Tazobactam Sod 4.5 gm/Dextrose 110 ml @ 27.5 mls/hr EVERY 8 HOURS IVPB 10/30/16 22:00 11/04/16 21:59 10/31/16 06:42 Polyethylene Glycol (Miralax) 17 gm HSPRN PRN ORAL Constipation 10/30/16 18:30 11/29/16 18:29 Vancomycin HCl 1 ea 1 ea DAILY PRN MISC Per rx protocol 10/30/16 18:30 11/29/16 18:29 Vancomycin HCl/ Dextrose (Vancomycin/D5W) 325 ml @ 162.5 mls/ hr Q8HR@0400,1200,2000 IVPB 10/31/16 13:00 11/05/16 12:59 Vitamin A/Vitamin D 1 applic 1 applic EVERY 12 HOURS TOPIC 10/30/16 21:00 11/29/16 20:59 10/31/16 08:51 Zolpidem Tartrate (Ambien) 5 mg HSPRN PRN ORAL Insomnia 10/30/16 18:30 11/29/16 18:29 Assessment/Plan Status: stable, progressing Assessment/Plan Assessment/Plan Assessment/Plan Assessment Sepsis Necrotizing fasciatis? L arm abscess Hepatitis C Plan IV Multiple Broad Spectrum Antbx Wound Care Infectious Specialist requested Tight BP and BG control CT scan results examined Welding Machine Setter requested LOBITO AZUL Oct 31, 2016 12:07
--- NOTE | 2016-10-31 12:08 | Consultation ---
DATE OF CONSULTATION: Admitted to Dr. Bradley Deal. CONSULTING PHYSICIAN: Dilan Rodas M.D. HISTORY OF PRESENT ILLNESS: This is a pleasant 56-year-old gentleman, who on got a small abrasion on the volar aspect of his left wrist from his watch. He provided a local care to this area and kept it clean and dry, but unfortunately over the weekend noted significant redness and swelling in his left upper extremity. He reports to [facility] ER where he has been started on IV antibiotics. He has had no fever, chills or signs of systemic infection. A CT of the upper extremity was ordered noting no fluid collection or abscess. The patient reports that he is feeling better. PAST MEDICAL HISTORY: None. PAST SURGICAL HISTORY: None. MEDICATIONS: Current medications, please see list. ALLERGIES: None. SOCIAL HISTORY: He is a campos. He is independent with all activities. He does not drink or smoke. REVIEW OF SYSTEMS: The patient denies numbness or tingling to the hand. He denies fever or chills. He is able to move his elbow and wrist. PHYSICAL EXAMINATION: GENERAL: He is alert. He is oriented. EXTREMITIES: He has some left upper extremity swelling extending from the elbow down to the wrist and hand. He is able to flex and extend, as well as well as flex and extend his wrist, he is able to make a fist. He does have some erythema extending to the antecubital area and on the volar aspect of the forearm with a small superficial abrasion over the volar aspect of the wrist on his watch, which has been removed and this area is clean. He has intact sensation. LABORATORY AND DIAGNOSTIC DATA: CT scan is reviewed. There is no evidence of fluid collection or abscess formation. IMPRESSION: Left upper extremity cellulitis. DISCUSSION: Recommend the patient continue IV antibiotic regimen per Infectious Disease. His white count has already come down and he starts seeing some improvement. We will have him continue antibiotic regimen per Infectious Disease recommendations and discharge regimen should be coordinated prior to the patient returning home. There is no need for surgical intervention at this time. Thank you for allowing me to participate in the care of this patient. If any questions or concerns please do not hesitate to contact me. Dilna Rodas M.D. Rubio Lynne DR: Celestina JOB#: [id number] CC: MINI
--- NOTE | 2016-10-31 12:23 | Cardiology Report ---
APPROVED REPORT EKG Measurement Heart [id number] Normal sinus rhythm Left axis deviation Abnormal ECG
[2016-10-31] MEDS: Vancomycin 1.5 GM in D5W 325 ML IVPB SCH ×2 (13:26→20:52)
[2016-10-31 16:11] VITALS: BP 155/90
--- NOTE | 2016-10-31 17:52 | Infectious Diseases Prog Note ---
Assessment/Plan Problems: (1) Left arm cellulitis Assessment & Plan: improving on wide spectrum antibiotics therapy , had surgical evaluation and no need for surgical debridement , will continue zosyn , vancomycin and clindamycin empirically for now , monitor SED rate (2) Sepsis Assessment & Plan: due to sever arm infection, await blood culture and continue wide spectrum antibiotics therapy (3) HCV (hepatitis C virus) Assessment & Plan: will order viral load and genotype. Subjective Musculoskeletal: Reports: pain, stiffness, swelling Allergies: Coded Allergies: No Known Allergies (Unverified , 08/11/16) All Systems: reviewed and negative except above Objective Vital Signs Last 24 Hour Vital Signs Date Time Temp Pulse Resp B/P Pulse Ox O2 Delivery O2 Flow Rate FiO2 10/31/16 16:11 97.9 76 20 155/90 99 Room Air 10/31/16 12:00 98.2 78 18 149/79 99 Room Air 10/31/16 09:17 97.5 10/31/16 08:00 97.5 80 18 136/82 96 Room Air 10/31/16 04:00 97.8 92 18 139/78 97 Room Air 10/31/16 00:00 97.7 91 18 141/79 95 Room Air 10/30/16 20:00 97.3 73 20 149/79 100 Room Air Height (Feet): 6 Height (Inches): 4.00 Weight (Pounds): 220 General Appearance: WD/WN, no acute distress HEENT: normocephalic, atraumatic, anicteric, mucous membranes moist Respiratory/Chest: chest wall non-tender, lungs clear, normal breath sounds, no respiratory distress, no accessory muscle use Cardiovascular: normal peripheral pulses, normal rate, regular rhythm, no gallop/murmur, no JVD Abdomen: normal bowel sounds, soft, non tender, no organomegaly, non distended , no mass, no scars Extremities: no cyanosis, no clubbing, other - left arm swelling and redness Skin: no rash, ulcers, other - left wrist medial wound infected Microbiology Date/Time Source Procedure Growth Status 10/30/16 20:00 Arm Left Gram Stain - Final Resulted 10/30/16 20:00 Arm Left Wound Culture Pending Resulted Laboratory Tests Test 10/31/16 05:10 10/31/16 10:45 1/30/17 17:30 White Blood Count 9.3 K/UL (4.8-10.8) Red Blood Count 4.36 M/UL (4.70-6.10) L Hemoglobin 13.7 G/DL (14.2-18.0) L Hematocrit 40.7 % (42.0-52.0) L Mean Corpuscular Volume 93 FL (80-99) Mean Corpuscular Hemoglobin 31.3 PG (27.0-31.0) H Mean Corpuscular Hemoglobin Concent 33.6 G/DL (32.0-36.0) Red Cell Distribution Width 12.4 % (11.6-14.8) Platelet Count 198 K/UL (150-450) Mean Platelet Volume 7.1 FL (6.5-10.1) Neutrophils (%) (Auto) 62.8 % (45.0-75.0) Lymphocytes (%) (Auto) 21.3 % (20.0-45.0) Monocytes (%) (Auto) 10.1 % (1.0-10.0) H Eosinophils (%) (Auto) 5.1 % (0.0-3.0) H Basophils (%) (Auto) 0.8 % (0.0-2.0) Erythrocyte Sedimentation Rate 22 MM/HR (0-20) H Sodium Level 139 mEQ/L (135-145) Potassium Level 4.3 mEQ/L (3.4-4.9) Chloride Level 99 mEQ/L (98-107) Carbon Dioxide Level 27 mEQ/L (20-30) Anion Gap 13 (5-15) Blood Urea Nitrogen 12 mg/dL (7-23) Creatinine 0.9 mg/dL (0.7-1.2) Estimat Glomerular Filtration Rate > 60 mL/min (>60) Glucose Level 131 mg/dL (74-106) H Hemoglobin A1c 5.4 % (< 6.0) Calcium Level 8.9 mg/dL (8.6-10.2) Total Bilirubin 0.3 mg/dL (0.0-1.2) Aspartate Amino Transf (AST/SGOT) 36 U/L (5-40) Alanine Aminotransferase (ALT/SGPT) 41 U/L (3-41) Alkaline Phosphatase 97 U/L (40-129) Total Protein 6.4 g/dL (6.6-8.7) L Albumin 3.3 g/dL (3.5-5.2) L Globulin 3.1 g/dL Albumin/Globulin Ratio 1.0 (1.0-2.7) Triglycerides Level 35 mg/dL (< 150) Cholesterol Level 140 mg/dL (< 200) LDL Cholesterol 52 mg/dL (60-99) L HDL Cholesterol 81 mg/dL (> 60) H Cholesterol/HDL Ratio 1.7 (3.3-4.4) L Thyroid Stimulating Hormone (TSH) 2.290 uIU/mL (0.300-4.500) Vancomycin Level Trough 10.1 ug/mL (5.0-12.0) Hepatitis C Antibody Pending Hepatitis C RNA (PCR) IUs/ml Pending Hepatitis C RNA (PCR) log IUs/ml Pending Hepatitis C Genotype Pending Current Medications Medications (Trade) Dose Ordered Sig/Aubrey Route PRN Reason Start Time Stop Time Status Last Admin Dose Admin Acetaminophen (Tylenol) 650 mg Q4H PRN ORAL fever 10/30/16 18:30 11/29/16 18:29 Al Hydroxide/Mg Hydroxide (Mylanta II) 30 ml Q6H PRN ORAL dyspepsia 10/30/16 18:30 11/29/16 18:29 Clindamycin HCl/ Dextrose (Cleocin 900mg) 50 ml @ 100 mls/hr Q8H IV 10/30/16 20:00 11/06/16 19:59 10/31/16 12:53 Dextrose (Dextrose 50%) STAT PRN IV Hypoglycemia 10/30/16 18:30 11/29/16 18:29 Heparin Sodium (Porcine) (Heparin 5000 units/ml) 5,000 units EVERY 12 HOURS SUBQ 10/30/16 21:00 11/29/16 20:59 10/31/16 08:50 Lorazepam (Ativan 2mg/ml 1ml) 0.5 mg Q4H PRN IV For Anxiety 10/30/16 18:30 11/06/16 18:29 Morphine Sulfate (Morphine Sulfate) 1 mg Q4H PRN IVP For Pain 10/30/16 18:45 11/06/16 18:44 10/31/16 08:47 Ondansetron HCl (Zofran) 4 mg Q6H PRN IVP Nausea & Vomiting 10/30/16 18:30 2/28/17 18:29 Piperacillin Sod/ Tazobactam Sod 4.5 gm/Dextrose 110 ml @ 27.5 mls/hr EVERY 8 HOURS IVPB 10/30/16 22:00 11/04/16 21:59 10/31/16 15:02 Polyethylene Glycol (Miralax) 17 gm HSPRN PRN ORAL Constipation 10/30/16 18:30 11/29/16 18:29 Vancomycin HCl 1 ea 1 ea DAILY PRN MISC Per rx protocol 10/30/16 18:30 11/29/16 18:29 Vancomycin HCl/ Dextrose (Vancomycin/D5W) 325 ml @ 162.5 mls/ hr Q8HR@0400,1200,2000 IVPB 10/31/16 13:00 11/05/16 12:59 10/31/16 13:26 Vitamin A/Vitamin D 1 applic 1 applic EVERY 12 HOURS TOPIC 10/30/16 21:00 11/29/16 20:59 10/31/16 08:51 Zolpidem Tartrate (Ambien) 5 mg HSPRN PRN ORAL Insomnia 10/30/16 18:30 11/29/16 18:29 Tashi Rinaldi M.D. Oct 31, 2016 17:52
[2016-10-31 19:51] VITALS: BP 142/96
--- NOTE | 2016-10-31 21:07 | History and Physical Report ---
DATE OF ADMISSION: 10/30/2016 Time Seen: 01:00 p.m. CONSULTANTS: 1. Bradley Deal D.O. 2. Abhishek Gupta M.D. 3. Tashi Rinaldi M.D. CHIEF COMPLAINT: Left arm cellulitis for two days. HISTORY OF PRESENT ILLNESS: This is a 56-year-old male, who lives at home presents to [facility] with left arm swelling. He is not sure whether it was a dog cut or a bug bite for two days it is getting worse. The patient came to [place] and diagnosed with left arm cellulitis and admitted to medical floor. Currently, calm in bed. No complaints. No chest pain. No shortness of breath. No nausea, vomiting, or diarrhea. PAST MEDICAL HISTORY: Nothing. PAST SURGICAL HISTORY: Nothing. MEDICATIONS: Include vancomycin, Zosyn, clindamycin, Tylenol, morphine, MiraLax, Zofran, Ativan, Ambien, and Mylanta. ALLERGIES: Denies. SOCIAL HISTORY: No smoking, no alcohol, and positive amphetamine use. PHYSICAL EXAMINATION: GENERAL: Calm in bed, oriented x1, in no acute distress. VITAL SIGNS: Temperature is 98 degrees, pulse 80, respirations 18, and blood pressure 149/79. CARDIOVASCULAR: Distant. No murmur. ABDOMEN: Bowel sounds positive. Nontender and nondistended. EXTREMITIES: No cyanosis, clubbing, or edema. Left arm all the way to actually the area is slightly raised, slightly warm, and slightly swollen. LABORATORY AND DIAGNOSTIC DATA: Lab exam shows white count initially 13 now it is 9.2, hemoglobin and hematocrit is 30 and 40, and platelet is 198,000. BMP shows glucose of 131, otherwise BMP is normal. Albumin is 3.3. INR is 1.0. Urine toxicology is vancomycin with 10.1. Urinalysis, 1+ leukocyte esterase . ASSESSMENT: 1. Left arm cellulitis. 2. Urinary tract infection. PLAN: 1. Continue premedications. 2. Wound care. 3. Antibiotics per Infectious Disease. 4. CBC and BMP in the morning. Bradley Deal D.O. DR: BOBBI JOB#: [id number] CC:
--- NOTE | 2016-10-31 22:08 | Consultation ---
DATE OF CONSULTATION: 10/31/2016 INFECTIOUS DISEASE CONSULTATION CONSULTING PHYSICIAN: Tashi Rinaldi M.D. REQUESTING PHYSICIAN: Bradley Deal D.O. REASON FOR CONSULTATION: Left arm skin abscess with extensive cellulitis. Possible necrotizing fasciitis. Recommendation for antibiotics therapy. HISTORY OF PRESENT ILLNESS: The patient is a 56-year-old male with history of chronic hepatitis C, who developed wound at his left breast area due to watchband he was wearing. He did not pay much attention to the wound. His wound got infected and developed sudden onset of left arm pain over night and swelling. He went to [facility] emergency room and he received some oral antibiotics including Keflex and Bactrim, which he took but did not get better. His arm continued to get worse. He developed lymph node swelling underneath his left axilla so he came in to [facility] for further evaluation and management since his pain was getting worse, and was 10/10 all over his left arm with swelling and redness. He is not sure of anything made his left arm pain better except pain medication. In the ED, he had a temperature of 97.9. The patient had a CT did not show any abscess. He was started on intravenous antibiotics therapy and I was consulted by the primary provider for antibiotics choice and further recommendation. PAST MEDICAL HISTORY: Significant for chronic hepatitis C. MEDICATIONS: He received Flagyl and Zosyn in the emergency room. For the rest of his medications please refer to MAR. ALLERGIES: He has no known drug allergy. FAMILY HISTORY: Not contributory. 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 Denied using any drugs, tobacco, or alcohol. REVIEW OF SYSTEMS: A 14-point of systems reviewed were all negative apart from though I mentioned above in my History and Physical. PHYSICAL EXAMINATION: VITAL SIGNS: Temperature 97.8 degrees, pulse 76, respirations 17, blood pressure 133/68, and pulse oximetry 100% on room air. GENERAL: The patient is a middle aged male, lying in bed, with left arm redness and swelling. Awake and alert, not in distress. HEENT: Normocephalic and atraumatic. Pupils both reactive to light equally. Moist oral mucosa. No exudate or thrush. NECK: Supple. No lymphadenopathy. CARDIOVASCULAR: Regular rate and rhythm. No murmur. No gallop. LUNGS: Clear bilaterally. No wheezing or rhonchi. ABDOMEN: Soft, nontender, and nondistended. Positive bowel sounds. No hepatosplenomegaly or ascites. EXTREMITIES: He had left upper extremity cellulitis, redness, warmth and swelling with decreased range of motion. He had left axilla lymph node enlargement. LABORATORY DATA: White count 15.3, hemoglobin 16.4, hematocrit 47.3, and platelet count of 221,000. BUN of 8 and creatinine of 0.9. ALT of 48 and AST of 38. Urinalysis showed +1 leukocyte esterase and 2 to 4 WBCs. IMAGING STUDIES: Chest x-ray showed no acute process. CT scan of the arm showed no abscess identified. ASSESSMENT AND PLAN: 1. Severe left arm cellulitis possible neck fasciitis. Recommend an immediate surgical consultation for possible surgical debridement. We will start him on Zosyn, vancomycin and clindamycin empiric treatment for now. Monitor his rate and laboratories closely. 2. Sepsis due to arm infection. Continue wide-spectrum antibiotics therapy. Await blood culture. 3. Chronic hepatitis C. Recommend treatment with gastroenterology as an outpatient. We will order viral load and genotype. Tashi Rinaldi M.D. DR: PAPITO JOB#: [id number] CC: MINI
[2016-11-01] VITALS: BP 144/86
[2016-11-01] MEDS: Clindamycin 900mg 50 ML IV SCH ×3 (03:38→19:49)
[2016-11-01] MEDS: Vancomycin 1.5 GM in D5W 325 ML IVPB SCH ×3 (04:14→20:49)
[2016-11-01] MEDS: Piperacillin/Tazobactam 4.5 GM in D5W 110 ML IVPB SCH ×3 (06:08→22:34)
[2016-11-01 07:20] LABS: BASOPHILS % (AUTO) 0.8 % (0.0-2.0); EOSINOPHILS % (AUTO) 6.6 % (0.0-3.0); LYMPHOCYTES % (AUTO) 27.3 % (20.0-45.0); MEAN CORPUSCULAR HEMOGLOBIN 31.3 PG (27.0-31.0); MEAN CORPUSCULAR HGB CONC 34.3 G/DL (32.0-36.0); MEAN CORPUSCULAR VOLUME 91 FL (80-99); MEAN PLATELET VOLUME 7.1 FL (6.5-10.1); MONOCYTES % (AUTO) 12.2 % (1.0-10.0); NEUTROPHILS % (AUTO) 53.2 % (45.0-75.0); PLATELET COUNT 259 K/UL (150-450); RED BLOOD COUNT 4.81 M/UL (4.70-6.10); RED CELL DISTRIBUTION WIDTH 12.7 % (11.6-14.8); WHITE BLOOD COUNT 7.4 K/UL (4.8-10.8)
[2016-11-01 07:35] LABS: ANION GAP 14 (5-15); CALCIUM 9.4 mg/dL (8.6-10.2); CARBON DIOXIDE 26 mEQ/L (20-30); CHLORIDE 101 mEQ/L (98-107); CREATININE 0.9 mg/dL (0.7-1.2); GLOMERULAR FILTRATION RATE > 60 mL/min (>60); HEMOLYSIS 2; POTASSIUM 4.3 mEQ/L (3.4-4.9); SODIUM 141 mEQ/L (135-145)
[2016-11-01 08:00] VITALS: BP 131/80
[2016-11-01] MEDS: Vitamin A&D Oint 2oz Tube TOPIC SCH ×2 (08:23→20:51)
[2016-11-01] MEDS: Heparin 5000 units/ml inj SUBQ SCH ×2 (08:24→20:50)
[2016-11-01 12:14] VITALS: BP 120/81
--- NOTE | 2016-11-01 13:55 | General Progress Note ---
Assessment/Plan Problem List: (1) UTI (urinary tract infection) ICD Codes: N39.0 - Urinary tract infection, site not specified SNOMED: 49042293 (2) Left arm cellulitis ICD Codes: L03.114 - Cellulitis of left upper limb SNOMED: 388060320, [id number] Status: stable, progressing, tolerating diet Assessment/Plan abx cbc bmp am dc plan Subjective Constitutional: Reports: weakness Allergies: Coded Allergies: No Known Allergies (Unverified , 08/11/16) All Systems: reviewed and negative except above Subjective calm sleepy in bed Objective Last 24 Hour Vital Signs Date Time Temp Pulse Resp B/P Pulse Ox O2 Delivery O2 Flow Rate FiO2 11/01/16 12:14 98.1 70 18 120/81 98 Room Air 11/01/16 08:00 97.7 76 20 131/80 97 Room Air 11/01/16 00:00 98.1 84 18 144/86 96 Room Air 10/31/16 19:51 98.1 85 22 142/96 96 Room Air 10/31/16 16:11 97.9 76 20 155/90 99 Room Air Intake and Output 10/31/16 11/01/16 19:00 07:00 Intake Total 1012.5 ml 1865.0 ml Balance 1012.5 ml 1865.0 ml Intake Oral 720 ml 950 ml IV Total 292.5 ml 915.0 ml # Voids 3 3 Laboratory Tests 10/31/16 17:30: Hepatitis C Antibody [Pending], Hepatitis C RNA (PCR) IUs/ml [Pending], Hepatitis C RNA (PCR) log IUs/ml [Pending], Hepatitis C Genotype [Pending] 11/01/16 05:00: White Blood Count 7.4, Red Blood Count 4.81, Hemoglobin 15.1, Hematocrit 43.9, Mean Corpuscular Volume 91, Mean Corpuscular Hemoglobin 31.3H, Mean Corpuscular Hemoglobin Concent 34.3, Red Cell Distribution Width 12.7, Platelet Count 259, Mean Platelet Volume 7.1, Neutrophils (%) (Auto) 53.2, Lymphocytes (%) (Auto) 27.3, Monocytes (%) (Auto) 12.2H, Eosinophils (%) (Auto) 6.6H, Basophils (%) ( Auto) 0.8, Sodium Level 141, Potassium Level 4.3, Chloride Level 101, Carbon Dioxide Level 26, Anion Gap 14, Blood Urea Nitrogen 14, Creatinine 0.9, Estimat Glomerular Filtration Rate > 60, Glucose Level 110H, Calcium Level 9.4 Height (Feet): 6 Height (Inches): 4.00 Weight (Pounds): 220 General Appearance: alert EENT: normal ENT inspection Neck: normal alignment Cardiovascular: normal peripheral pulses, normal rate, regular rhythm Respiratory/Chest: chest wall non-tender, lungs clear, normal breath sounds Abdomen: normal bowel sounds, non tender, soft Extremities: normal inspection Edema: 1+ Arm (L) Edema: trace edema Neurologic: responsive, motor weakness Skin: normal pigmentation, warm/dry MYRA GARCIA Nov 01, 2016 13:55
--- NOTE | 2016-11-01 14:18 | Diagnostic Imaging Report ---
APPROVED REPORT CPT Code: 59772 Present Symptoms Lower Extremity Pain: Bilateral BILATERAL: Imaging reveals a patent deep venous system bilaterally. There is no evidence of thrombus within the femoral, popliteal or tibial segments. The greater saphenous veins are also within normal limits. Doppler indicates normal spontaneous flow within these segments.
--- NOTE | 2016-11-01 14:18 | Diagnostic Imaging Report ---
APPROVED REPORT CPT Code: 16961 Symptoms Claudication : BILATERAL: Common femoral artery waveform analysis is within normal limits at rest. Color flow duplex sonography reveals patency of the superficial femoral, popliteal, and tibial arteries, there is no evidence of stenosis or occlusion within these segments. Doppler tibial artery waveform analysis is within normal limits, bilaterally. There is no evidence of significant arterial occlusive disease, bilaterally
[2016-11-01 16:00] VITALS: BP 158/84
[2016-11-01] MEDS ORDERED: NS 275ml ONE (16:40)
[2016-11-01] MEDS ORDERED: Tubing IV Secondary IV ONE (16:40)
--- NOTE | 2016-11-01 17:09 | Infectious Diseases Prog Note ---
Assessment/Plan Problems: (1) Left arm cellulitis Assessment & Plan: improving on wide spectrum antibiotics therapy , had surgical evaluation and no need for surgical debridement , will continue zosyn , vancomycin and clindamycin empirically for now , monitor labs and vitals (2) Sepsis Assessment & Plan: due to sever arm infection, await blood culture and continue wide spectrum antibiotics therapy (3) HCV (hepatitis C virus) Assessment & Plan: await viral load and genotype. Subjective Musculoskeletal: Reports: pain, stiffness, swelling Allergies: Coded Allergies: No Known Allergies (Unverified , 08/11/16) All Systems: reviewed and negative except above Objective Vital Signs Last 24 Hour Vital Signs Date Time Temp Pulse Resp B/P Pulse Ox O2 Delivery O2 Flow Rate FiO2 11/01/16 16:00 97.9 72 20 158/84 96 Room Air 11/01/16 12:14 98.1 70 18 120/81 98 Room Air 11/01/16 08:00 97.7 76 20 131/80 97 Room Air 11/01/16 00:00 98.1 84 18 144/86 96 Room Air 10/31/16 19:51 98.1 85 22 142/96 96 Room Air Height (Feet): 6 Height (Inches): 4.00 Weight (Pounds): 220 General Appearance: WD/WN, no acute distress HEENT: normocephalic, atraumatic, anicteric, mucous membranes moist Respiratory/Chest: chest wall non-tender, lungs clear, normal breath sounds, no respiratory distress, no accessory muscle use Cardiovascular: normal peripheral pulses, normal rate, regular rhythm, no gallop/murmur, no JVD Abdomen: normal bowel sounds, soft, non tender, no organomegaly, non distended , no mass, no scars Extremities: no cyanosis, no clubbing, other - left arm redness and swelling Skin: no rash, no lesions, ulcers Microbiology Date/Time Source Procedure Growth Status 10/30/16 12:55 Blood Blood Culture - Preliminary NO GROWTH AFTER 24 HOURS Resulted 10/30/16 12:55 Blood Blood Culture - Preliminary NO GROWTH AFTER 24 HOURS Resulted 10/30/16 20:00 Arm Left Gram Stain - Final Resulted 10/30/16 20:00 Arm Left Wound Culture - Preliminary NO GROWTH AFTER 24 HOURS Resulted Laboratory Tests Test 10/31/16 17:30 11/01/16 05:00 Hepatitis C Antibody Pending Hepatitis C RNA (PCR) IUs/ml Pending Hepatitis C RNA (PCR) log IUs/ml Pending Hepatitis C Genotype Pending White Blood Count 7.4 K/UL (4.8-10.8) Red Blood Count 4.81 M/UL (4.70-6.10) Hemoglobin 15.1 G/DL (14.2-18.0) Hematocrit 43.9 % (42.0-52.0) Mean Corpuscular Volume 91 FL (80-99) Mean Corpuscular Hemoglobin 31.3 PG (27.0-31.0) H Mean Corpuscular Hemoglobin Concent 34.3 G/DL (32.0-36.0) Red Cell Distribution Width 12.7 % (11.6-14.8) Platelet Count 259 K/UL (150-450) Mean Platelet Volume 7.1 FL (6.5-10.1) Neutrophils (%) (Auto) 53.2 % (45.0-75.0) Lymphocytes (%) (Auto) 27.3 % (20.0-45.0) Monocytes (%) (Auto) 12.2 % (1.0-10.0) H Eosinophils (%) (Auto) 6.6 % (0.0-3.0) H Basophils (%) (Auto) 0.8 % (0.0-2.0) Sodium Level 141 mEQ/L (135-145) Potassium Level 4.3 mEQ/L (3.4-4.9) Chloride Level 101 mEQ/L (98-107) Carbon Dioxide Level 26 mEQ/L (20-30) Anion Gap 14 (5-15) Blood Urea Nitrogen 14 mg/dL (7-23) Creatinine 0.9 mg/dL (0.7-1.2) Estimat Glomerular Filtration Rate > 60 mL/min (>60) Glucose Level 110 mg/dL (74-106) H Calcium Level 9.4 mg/dL (8.6-10.2) Current Medications Medications (Trade) Dose Ordered Sig/Aubrey Route PRN Reason Start Time Stop Time Status Last Admin Dose Admin Acetaminophen (Tylenol) 650 mg Q4H PRN ORAL fever 10/30/16 18:30 11/29/16 18:29 Al Hydroxide/Mg Hydroxide (Mylanta II) 30 ml Q6H PRN ORAL dyspepsia 10/30/16 18:30 11/29/16 18:29 Clindamycin HCl/ Dextrose (Cleocin 900mg) 50 ml @ 100 mls/hr Q8H IV 10/30/16 20:00 11/06/16 19:59 11/01/16 11:49 Dextrose (Dextrose 50%) STAT PRN IV Hypoglycemia 10/30/16 18:30 11/29/16 18:29 Heparin Sodium (Porcine) (Heparin 5000 units/ml) 5,000 units EVERY 12 HOURS SUBQ 10/30/16 21:00 11/29/16 20:59 10/31/16 20:57 Lorazepam (Ativan 2mg/ml 1ml) 0.5 mg Q4H PRN IV For Anxiety 10/30/16 18:30 11/06/16 18:29 Morphine Sulfate (Morphine Sulfate) 1 mg Q4H PRN IVP For Pain 10/30/16 18:45 11/06/16 18:44 10/31/16 08:47 Ondansetron HCl (Zofran) 4 mg Q6H PRN IVP Nausea & Vomiting 10/30/16 18:30 11/29/16 18:29 Piperacillin Sod/ Tazobactam Sod 4.5 gm/Dextrose 110 ml @ 27.5 mls/hr EVERY 8 HOURS IVPB 10/30/16 22:00 11/04/16 21:59 11/01/16 14:29 Polyethylene Glycol (Miralax) 17 gm HSPRN PRN ORAL Constipation 10/30/16 18:30 11/29/16 18:29 Vancomycin HCl 1 ea 1 ea DAILY PRN MISC Per rx protocol 10/30/16 18:30 11/29/16 18:29 Vancomycin HCl/ Dextrose (Vancomycin/D5W) 325 ml @ 162.5 mls/ hr Q8HR@0400,1200,2000 IVPB 10/31/16 13:00 11/05/16 12:59 11/01/16 12:33 Vitamin A/Vitamin D 1 applic 1 applic EVERY 12 HOURS TOPIC 10/30/16 21:00 11/29/16 20:59 11/01/16 08:23 Zolpidem Tartrate (Ambien) 5 mg HSPRN PRN ORAL Insomnia 10/30/16 18:30 11/29/16 18:29 Tashi Rinaldi M.D. Nov 01, 2016 17:08
[2016-11-01 20:00] VITALS: BP 147/77
[2016-11-01] MEDS: Morphine Sulfate 2mg/ml Inj IVP PRN (21:06)
[2016-11-01 23:52] VITALS: BP 143/74
[2016-11-02] MEDS: Clindamycin 900mg 50 ML IV SCH ×2 (03:01→10:58)
[2016-11-02] MEDS: Vancomycin 1.5 GM in D5W 325 ML IVPB SCH ×3 (03:29→20:57)
[2016-11-02] MEDS: Piperacillin/Tazobactam 4.5 GM in D5W 110 ML IVPB SCH ×3 (05:53→22:52)
[2016-11-02 07:03] LABS: BASOPHILS % (AUTO) 1.6 % (0.0-2.0); EOSINOPHILS % (AUTO) 7.4 % (0.0-3.0); LYMPHOCYTES % (AUTO) 33.3 % (20.0-45.0); MEAN CORPUSCULAR HEMOGLOBIN 31.6 PG (27.0-31.0); MEAN CORPUSCULAR HGB CONC 34.6 G/DL (32.0-36.0); MEAN CORPUSCULAR VOLUME 91 FL (80-99); MEAN PLATELET VOLUME 7.4 FL (6.5-10.1); MONOCYTES % (AUTO) 15.3 % (1.0-10.0); NEUTROPHILS % (AUTO) 42.4 % (45.0-75.0); PLATELET COUNT 285 K/UL (150-450); RED BLOOD COUNT 5.03 M/UL (4.70-6.10); RED CELL DISTRIBUTION WIDTH 12.6 % (11.6-14.8); WHITE BLOOD COUNT 7.1 K/UL (4.8-10.8)
[2016-11-02 07:12] LABS: ANION GAP 14 (5-15); CALCIUM 9.3 mg/dL (8.6-10.2); CARBON DIOXIDE 24 mEQ/L (20-30); CHLORIDE 101 mEQ/L (98-107); CREATININE 0.8 mg/dL (0.7-1.2); GLOMERULAR FILTRATION RATE > 60 mL/min (>60); HEMOLYSIS 6; POTASSIUM 4.1 mEQ/L (3.4-4.9); SODIUM 139 mEQ/L (135-145)
[2016-11-02] MEDS: Heparin 5000 units/ml inj SUBQ SCH ×2 (08:27→20:58)
[2016-11-02] MEDS: Vitamin A&D Oint 2oz Tube TOPIC SCH ×2 (08:27→20:57)
[2016-11-02 08:55] VITALS: BP 122/71
[2016-11-02 12:58] VITALS: BP 121/82
--- NOTE | 2016-11-02 14:32 | General Progress Note ---
Assessment/Plan Problem List: (1) UTI (urinary tract infection) ICD Codes: N39.0 - Urinary tract infection, site not specified SNOMED: 83976227 (2) Left arm cellulitis ICD Codes: L03.114 - Cellulitis of left upper limb SNOMED: 749168493, [id number] Status: stable, progressing, tolerating diet Assessment/Plan abx cbc bmp am dc plan Subjective Constitutional: Reports: weakness Allergies: Coded Allergies: No Known Allergies (Unverified , 08/11/16) All Systems: reviewed and negative except above Subjective calm sleepy in bed Objective Last 24 Hour Vital Signs Date Time Temp Pulse Resp B/P Pulse Ox O2 Delivery O2 Flow Rate FiO2 11/02/16 12:58 97.9 82 19 121/82 97 Room Air 69 11/02/16 08:55 97.0 82 20 122/71 97 Room Air 82 11/01/16 23:52 98.1 81 18 143/74 96 Room Air 11/01/16 20:00 98.2 83 20 147/77 96 Room Air 11/01/16 16:00 97.9 72 20 158/84 96 Room Air Intake and Output 11/01/16 11/02/16 19:00 07:00 Intake Total 985.0 ml 1767.5 ml Balance 985.0 ml 1767.5 ml Intake Oral 500 ml 880 ml IV Total 485.0 ml 887.5 ml # Voids 2 12 # Bowel Movements 1 Laboratory Tests 11/02/16 05:00: White Blood Count 7.1, Red Blood Count 5.03, Hemoglobin 15.9, Hematocrit 45.9, Mean Corpuscular Volume 91, Mean Corpuscular Hemoglobin 31.6H, Mean Corpuscular Hemoglobin Concent 34.6, Red Cell Distribution Width 12.6, Platelet Count 285, Mean Platelet Volume 7.4, Neutrophils (%) (Auto) 42.4L, Lymphocytes (%) (Auto) 33.3, Monocytes (%) (Auto) 15.3H, Eosinophils (%) (Auto) 7.4H, Basophils (%) ( Auto) 1.6, Sodium Level 139, Potassium Level 4.1, Chloride Level 101, Carbon Dioxide Level 24, Anion Gap 14, Blood Urea Nitrogen 12, Creatinine 0.8, Estimat Glomerular Filtration Rate > 60, Glucose Level 117H, Calcium Level 9.3 Height (Feet): 6 Height (Inches): 4.00 Weight (Pounds): 220 General Appearance: alert EENT: PERRL/EOMI Neck: normal alignment Cardiovascular: normal peripheral pulses, normal rate, regular rhythm Respiratory/Chest: chest wall non-tender, lungs clear, normal breath sounds Abdomen: normal bowel sounds, non tender, soft Extremities: normal inspection Edema: 1+ Arm (L) Edema: trace edema Neurologic: responsive, motor weakness Skin: normal pigmentation, warm/dry MYRA GARCIA Nov 02, 2016 14:32
[2016-11-02 16:00] VITALS: BP 157/94
--- NOTE | 2016-11-02 17:58 | Infectious Diseases Prog Note ---
Assessment/Plan Problems: (1) Left arm cellulitis Assessment & Plan: improving on wide spectrum antibiotics therapy , had surgical evaluation and no need for surgical debridement , will continue zosyn , vancomycin and D/C clindamycin for now , monitor labs and vitals (2) Sepsis Assessment & Plan: due to sever arm infection, await blood culture and continue wide spectrum antibiotics therapy (3) HCV (hepatitis C virus) Assessment & Plan: await viral load and genotype. Subjective Musculoskeletal: Reports: pain, stiffness, swelling Allergies: Coded Allergies: No Known Allergies (Unverified , 08/11/16) All Systems: reviewed and negative except above Objective Vital Signs Last 24 Hour Vital Signs Date Time Temp Pulse Resp B/P Pulse Ox O2 Delivery O2 Flow Rate FiO2 11/02/16 16:00 98.4 75 20 157/94 97 Room Air 11/02/16 12:58 97.9 82 19 121/82 97 Room Air 69 11/02/16 08:55 97.0 82 20 122/71 97 Room Air 82 11/01/16 23:52 98.1 81 18 143/74 96 Room Air 11/01/16 20:00 98.2 83 20 147/77 96 Room Air Height (Feet): 6 Height (Inches): 4.00 Weight (Pounds): 220 General Appearance: WD/WN, no acute distress HEENT: normocephalic, atraumatic, anicteric, mucous membranes moist Respiratory/Chest: chest wall non-tender, lungs clear, normal breath sounds, no respiratory distress, no accessory muscle use Cardiovascular: normal peripheral pulses, normal rate, regular rhythm, no gallop/murmur, no JVD Abdomen: normal bowel sounds, soft, non tender, no organomegaly, non distended , no mass, no scars Extremities: no cyanosis, no clubbing, other - left arm sweilling and redness Microbiology Date/Time Source Procedure Growth Status 10/30/16 20:00 Arm Left Gram Stain - Final Resulted 10/30/16 20:00 Arm Left Wound Culture - Preliminary NO GROWTH AFTER 24 HOURS Resulted Laboratory Tests Test 11/02/16 05:00 White Blood Count 7.1 K/UL (4.8-10.8) Red Blood Count 5.03 M/UL (4.70-6.10) Hemoglobin 15.9 G/DL (14.2-18.0) Hematocrit 45.9 % (42.0-52.0) Mean Corpuscular Volume 91 FL (80-99) Mean Corpuscular Hemoglobin 31.6 PG (27.0-31.0) H Mean Corpuscular Hemoglobin Concent 34.6 G/DL (32.0-36.0) Red Cell Distribution Width 12.6 % (11.6-14.8) Platelet Count 285 K/UL (150-450) Mean Platelet Volume 7.4 FL (6.5-10.1) Neutrophils (%) (Auto) 42.4 % (45.0-75.0) L Lymphocytes (%) (Auto) 33.3 % (20.0-45.0) Monocytes (%) (Auto) 15.3 % (1.0-10.0) H Eosinophils (%) (Auto) 7.4 % (0.0-3.0) H Basophils (%) (Auto) 1.6 % (0.0-2.0) Sodium Level 139 mEQ/L (135-145) Potassium Level 4.1 mEQ/L (3.4-4.9) Chloride Level 101 mEQ/L (98-107) Carbon Dioxide Level 24 mEQ/L (20-30) Anion Gap 14 (5-15) Blood Urea Nitrogen 12 mg/dL (7-23) Creatinine 0.8 mg/dL (0.7-1.2) Estimat Glomerular Filtration Rate > 60 mL/min (>60) Glucose Level 117 mg/dL (74-106) H Calcium Level 9.3 mg/dL (8.6-10.2) Current Medications Medications (Trade) Dose Ordered Sig/Aubrey Route PRN Reason Start Time Stop Time Status Last Admin Dose Admin Acetaminophen (Tylenol) 650 mg Q4H PRN ORAL fever 10/30/16 18:30 11/29/16 18:29 Al Hydroxide/Mg Hydroxide (Mylanta II) 30 ml Q6H PRN ORAL dyspepsia 10/30/16 18:30 11/29/16 18:29 Clindamycin HCl/ Dextrose (Cleocin 900mg) 50 ml @ 100 mls/hr Q8H IV 10/30/16 20:00 11/06/16 19:59 11/02/16 10:58 Dextrose (Dextrose 50%) STAT PRN IV Hypoglycemia 10/30/16 18:30 11/29/16 18:29 Heparin Sodium (Porcine) (Heparin 5000 units/ml) 5,000 units EVERY 12 HOURS SUBQ 10/30/16 21:00 11/29/16 20:59 11/01/16 20:50 Lorazepam (Ativan 2mg/ml 1ml) 0.5 mg Q4H PRN IV For Anxiety 10/30/16 18:30 11/06/16 18:29 Morphine Sulfate (Morphine Sulfate) 1 mg Q4H PRN IVP For Pain 10/30/16 18:45 11/06/16 18:44 11/01/16 21:06 Ondansetron HCl (Zofran) 4 mg Q6H PRN IVP Nausea & Vomiting 10/30/16 18:30 11/29/16 18:29 Piperacillin Sod/ Tazobactam Sod 4.5 gm/Dextrose 110 ml @ 27.5 mls/hr EVERY 8 HOURS IVPB 10/30/16 22:00 11/04/16 21:59 11/02/16 14:06 Polyethylene Glycol (Miralax) 17 gm HSPRN PRN ORAL Constipation 10/30/16 18:30 11/29/16 18:29 Vancomycin HCl 1 ea 1 ea DAILY PRN MISC Per rx protocol 10/30/16 18:30 11/29/16 18:29 Vancomycin HCl/ Dextrose (Vancomycin/D5W) 325 ml @ 162.5 mls/ hr Q8HR@0400,1200,2000 IVPB 10/31/16 13:00 11/05/16 12:59 11/02/16 11:43 Vitamin A/Vitamin D 1 applic 1 applic EVERY 12 HOURS TOPIC 10/30/16 21:00 11/29/16 20:59 11/02/16 08:27 Zolpidem Tartrate (Ambien) 5 mg HSPRN PRN ORAL Insomnia 10/30/16 18:30 11/29/16 18:29 Tashi Rinaldi M.D. Nov 02, 2016 17:58
[2016-11-02 20:00] VITALS: BP 149/81
--- NOTE | 2016-11-02 22:01 | Pulmonology Progress Note ---
Assessment/Plan Assessment/Plan Assessment Sepsis Necrotizing fasciatis? L arm abscess Hepatitis C Plan IV Multiple Broad Spectrum Antbx Wound Care Infectious Specialist requested Tight BP and BG control CT scan results examined Dust Control Engineer requested Subjective ROS Limited/Unobtainable: No Constitutional: Reports: anorexia, chills, fatigue, fever Neurologic: Reports: weakness Musculoskeletal: Reports: pain, stiffness, swelling Allergies: Coded Allergies: No Known Allergies (Unverified , 08/11/16) Objective Last 24 Hour Vital Signs Date Time Temp Pulse Resp B/P Pulse Ox O2 Delivery O2 Flow Rate FiO2 11/02/16 20:00 98.5 72 20 149/81 99 Room Air 11/02/16 16:00 98.4 75 20 157/94 97 Room Air 11/02/16 12:58 97.9 82 19 121/82 97 Room Air 69 11/02/16 08:55 97.0 82 20 122/71 97 Room Air 82 11/01/16 23:52 98.1 81 18 143/74 96 Room Air Intake and Output 11/01/16 11/02/16 19:00 07:00 Intake Total 985.0 ml 1767.5 ml Balance 985.0 ml 1767.5 ml Intake Oral 500 ml 880 ml IV Total 485.0 ml 887.5 ml # Voids 2 12 # Bowel Movements 1 General Appearance: no acute distress HEENT: normocephalic, atraumatic, PERRL Respiratory/Chest: chest wall non-tender, lungs clear, normal breath sounds Cardiovascular: normal peripheral pulses, normal rate, regular rhythm, no JVD Abdomen: soft, non tender, no organomegaly, non distended Genitourinary: normal external genitalia Extremities: no cyanosis Skin: rash, lesions, ulcers, other - L upper extremity abscess possible nectrotizing fasciatis Neurologic/Psychiatric: violin repairer II-XII grossly normal, no motor/sensory deficits Laboratory Tests 11/02/16 05:00: White Blood Count 7.1, Red Blood Count 5.03, Hemoglobin 15.9, Hematocrit 45.9, Mean Corpuscular Volume 91, Mean Corpuscular Hemoglobin 31.6H, Mean Corpuscular Hemoglobin Concent 34.6, Red Cell Distribution Width 12.6, Platelet Count 285, Mean Platelet Volume 7.4, Neutrophils (%) (Auto) 42.4L, Lymphocytes (%) (Auto) 33.3, Monocytes (%) (Auto) 15.3H, Eosinophils (%) (Auto) 7.4H, Basophils (%) ( Auto) 1.6, Sodium Level 139, Potassium Level 4.1, Chloride Level 101, Carbon Dioxide Level 24, Anion Gap 14, Blood Urea Nitrogen 12, Creatinine 0.8, Estimat Glomerular Filtration Rate > 60, Glucose Level 117H, Calcium Level 9.3 Current Medications Medications (Trade) Dose Ordered Sig/Aubrey Route PRN Reason Start Time Stop Time Status Last Admin Dose Admin Acetaminophen (Tylenol) 650 mg Q4H PRN ORAL fever 10/30/16 18:30 11/29/16 18:29 Al Hydroxide/Mg Hydroxide (Mylanta II) 30 ml Q6H PRN ORAL dyspepsia 10/30/16 18:30 11/29/16 18:29 Dextrose (Dextrose 50%) STAT PRN IV Hypoglycemia 10/30/16 18:30 11/29/16 18:29 Heparin Sodium (Porcine) (Heparin 5000 units/ml) 5,000 units EVERY 12 HOURS SUBQ 10/30/16 21:00 11/29/16 20:59 11/02/16 20:58 Lorazepam (Ativan 2mg/ml 1ml) 0.5 mg Q4H PRN IV For Anxiety 10/30/16 18:30 11/06/16 18:29 Morphine Sulfate (Morphine Sulfate) 1 mg Q4H PRN IVP For Pain 10/30/16 18:45 11/06/16 18:44 11/01/16 21:06 Ondansetron HCl (Zofran) 4 mg Q6H PRN IVP Nausea & Vomiting 10/30/16 18:30 11/29/16 18:29 Piperacillin Sod/ Tazobactam Sod/ Dextrose (Zosyn/D5W) 110 ml @ 27.5 mls/hr EVERY 8 HOURS IVPB 10/30/16 22:00 11/04/16 21:59 11/02/16 14:06 Polyethylene Glycol (Miralax) 17 gm HSPRN PRN ORAL Constipation 10/30/16 18:30 11/29/16 18:29 Vancomycin HCl 1 ea 1 ea DAILY PRN MISC Per rx protocol 10/30/16 18:30 11/29/16 18:29 Vancomycin HCl/ Dextrose (Vancomycin/D5W) 325 ml @ 162.5 mls/ hr Q8HR@0400,1200,2000 IVPB 10/31/16 13:00 11/05/16 12:59 11/02/16 20:57 Vitamin A/Vitamin D 1 applic 1 applic EVERY 12 HOURS TOPIC 10/30/16 21:00 11/29/16 20:59 11/02/16 20:57 Zolpidem Tartrate (Ambien) 5 mg HSPRN PRN ORAL Insomnia 10/30/16 18:30 11/29/16 18:29 LOBITO AZUL Nov 02, 2016 22:01
[2016-11-03] VITALS: BP 146/84
[2016-11-03] MEDS: Vancomycin 1.5 GM in D5W 325 ML IVPB SCH ×2 (03:32→12:50)
[2016-11-03 04:00] VITALS: BP 146/86
[2016-11-03] MEDS: Piperacillin/Tazobactam 4.5 GM in D5W 110 ML IVPB SCH ×2 (05:51→14:00)
[2016-11-03 08:34] LABS: BASOPHILS % (AUTO) 2.7 % (0.0-2.0); EOSINOPHILS % (AUTO) 5.7 % (0.0-3.0); MEAN CORPUSCULAR HEMOGLOBIN 30.3 PG (27.0-31.0); MEAN CORPUSCULAR HGB CONC 33.3 G/DL (32.0-36.0); MEAN CORPUSCULAR VOLUME 91 FL (80-99); MEAN PLATELET VOLUME 7.1 FL (6.5-10.1); MONOCYTES % (AUTO) 9.9 % (1.0-10.0); NEUTROPHILS % (AUTO) 52.8 % (45.0-75.0); PLATELET COUNT 291 K/UL (150-450); RED BLOOD COUNT 5.34 M/UL (4.70-6.10); RED CELL DISTRIBUTION WIDTH 12.5 % (11.6-14.8); WHITE BLOOD COUNT 7.8 K/UL (4.8-10.8)
[2016-11-03 08:53] VITALS: BP 142/72
[2016-11-03 08:56] LABS: ANION GAP 15 (5-15); CARBON DIOXIDE 26 mEQ/L (20-30); CHLORIDE 97 mEQ/L (98-107); CREATININE 0.9 mg/dL (0.7-1.2); GLOMERULAR FILTRATION RATE > 60 mL/min (>60); HEMOLYSIS 4; POTASSIUM 3.8 mEQ/L (3.4-4.9); SODIUM 138 mEQ/L (135-145)
[2016-11-03] MEDS: Vitamin A&D Oint 2oz Tube TOPIC SCH (09:01)
[2016-11-03] MEDS: Heparin 5000 units/ml inj SUBQ SCH (09:05)
[2016-11-03 12:50] VITALS: BP 141/82
--- NOTE | 2016-11-03 12:58 | General Progress Note ---
Assessment/Plan Problem List: (1) UTI (urinary tract infection) ICD Codes: N39.0 - Urinary tract infection, site not specified SNOMED: 94397482 (2) Left arm cellulitis ICD Codes: L03.114 - Cellulitis of left upper limb SNOMED: 163515439, 796400178 Status: stable, progressing, tolerating diet Assessment/Plan abx dc plan Subjective Constitutional: Reports: weakness Allergies: Coded Allergies: No Known Allergies (Unverified , 08/11/16) All Systems: reviewed and negative except above Subjective calm sleepy in bed Objective Last 24 Hour Vital Signs Date Time Temp Pulse Resp B/P Pulse Ox O2 Delivery O2 Flow Rate FiO2 11/03/16 08:53 97.3 88 20 142/72 97 Room Air 88 11/03/16 04:00 98.1 76 18 146/86 99 Room Air 11/03/16 00:00 98.2 74 18 146/84 99 Room Air 11/02/16 20:00 98.5 72 20 149/81 99 Room Air 11/02/16 16:00 98.4 75 20 157/94 97 Room Air 11/02/16 12:58 97.9 82 19 121/82 97 Room Air 69 Intake and Output 11/02/16 11/03/16 19:00 07:00 Intake Total 1717.5 ml 1537.5 ml Balance 1717.5 ml 1537.5 ml Intake Oral 1200 ml 1075 ml IV Total 517.5 ml 462.5 ml # Voids 2 3 Laboratory Tests 11/03/16 08:10: White Blood Count 7.8, Red Blood Count 5.34, Hemoglobin 16.2, Hematocrit 48.5, Mean Corpuscular Volume 91, Mean Corpuscular Hemoglobin 30.3, Mean Corpuscular Hemoglobin Concent 33.3, Red Cell Distribution Width 12.5, Platelet Count 291, Mean Platelet Volume 7.1, Neutrophils (%) (Auto) 52.8, Lymphocytes (%) (Auto) 29.0, Monocytes (%) (Auto) 9.9, Eosinophils (%) (Auto) 5.7H, Basophils (%) (Auto ) 2.7H, Sodium Level 138, Potassium Level 3.8, Chloride Level 97L, Carbon Dioxide Level 26, Anion Gap 15, Blood Urea Nitrogen 12, Creatinine 0.9, Estimat Glomerular Filtration Rate > 60, Glucose Level 174H, Calcium Level 10.0 Height (Feet): 6 Height (Inches): 4.00 Weight (Pounds): 220 General Appearance: lethargic EENT: normal ENT inspection Neck: non-tender, normal alignment, supple Cardiovascular: normal peripheral pulses, normal rate, regular rhythm Respiratory/Chest: chest wall non-tender, lungs clear, normal breath sounds Abdomen: normal bowel sounds, non tender, soft Extremities: normal inspection Edema: 1+ Arm (L) Neurologic: responsive, motor weakness Skin: normal pigmentation, warm/dry MYRA GARCIA Nov 03, 2016 12:58
--- NOTE | 2016-11-03 12:59 | Diagnostic Imaging Report ---
Indication: 05/11 left forearm pain Technique: IV administration nonionic contrast. Spiral acquisitions obtained through the left forearm. Multiplanar reconstructions were generated. Total dose length product 455 mGycm. CTDIvol(s) mGy. Radiation dose was minimized using automated exposure control Comparison: None Findings: There is diffuse edema of the subcutaneous fat. There is also mild edema of the fat within the muscular compartments. No focal rim-enhancing fluid collection to suggest abscess demonstrated. No osseous abnormality. No evidence of elbow joint effusion Impression: Diffuse soft tissue swelling, mostly subcutaneous. This could indicate is edema or cellulitis No findings to suggest abscess No bony abnormality This agrees with the preliminary interpretation provided overnight by [facility] teleradiology service. The CT scanner at [facility] is accredited by the [employer] and the scans are performed using protocols designed to limit radiation exposure to as low as reasonably achievable to attain images of sufficient resolution adequate for diagnostic evaluation.
[2016-11-03] MEDS ORDERED: DOXYCYCLINE MO100 MG ORAL (15:32)
[2016-11-03] MEDS ORDERED: AUGMENTIN 875-1 EAC1 ORAL (15:32)
[2016-11-03 23:12] LABS: HEP C VIRUS RNA (LOG IU/ML) 6.393 (.); HEPATITIS C QUANT 2472470 IU/mL (.)
--- NOTE | 2016-11-04 17:38 | Discharge Summary ---
Discharge Summary Hospital Course Date of Admission Oct 30, 2016 at 17:45 Date of Discharge Nov 03, 2016 at 17:30 Admitting Diagnosis Cellulitis/abscess Left arm(antibiotics failure) HPI Frederick Arce is a 56 year old male who was admitted on Oct 30, 2016 at 17:45 for Cellulitis,Abscess Left Arm Hospital Course [id number] Discharge Discharge Disposition Patient was discharged to home Discharge Diagnoses: Layne Cotto NP Nov 04, 2016 17:38
--- NOTE | 2016-11-04 23:47 | Discharge Summary 2 SIG ---
DATE OF ADMISSION: 10/30/2016 DATE OF DISCHARGE: 11/03/2016 CONSULTANTS: 1. Dilan Rodas M.D. 2. Tashi Rinaldi M.D. BRIEF HOSPITAL COURSE: The patient is a 56-year-old male, who lives at home, presented to [facility] for left arm swelling. He was not sure whether it was a dog cut or a bug bite, but for two days it was getting worse. On evaluation, the patient was found to have a left arm cellulitis and was admitted to medical floor. Dr. Rinaldi was consulted. The patient has a possible neck fasciitis and recommended immediate surgical consult. He was started on Zosyn, vancomycin, and clindamycin. Dr. Gupta was also consulted for critical care management. Dr. Rodas was consulted for surgical evaluation. CT of the upper extremity showed no fluid collection or abscess. Recommend nonoperative treatment and to continue with IV antibiotics. He came in with an open abscess on the wrist. Wound care was rendered. The patient had good response improving on wide spectrum antibiotic therapy. The patient also had hepatitis C. Awaiting viral load, phenotype, and genotype. He was recommended to continue outpatient management. He was eventually discharged home. FINAL DIAGNOSES: 1. Left arm cellulitis. 2. Urinary tract infection. 3. Sepsis due to severe arm infection. 4. Hepatitis C virus. Bradley Deal D.O. I have been assigned to dictate discharge summary on this account and I was not involved in the patient's management. Layne Cotto N.P. DR: ERIS JOB#: [id number] CC:
== END 2016-11-03 17:30 | disposition home or self-care (01) | DRG 720 ==
LOC: EMR 13:26 → EDBEDREQ 14:11 → EMR 16:34 → 4W 17:45
DX: A41.9 Sepsis, unspecified organism (principal); M72.6 Necrotizing fasciitis; L03.114 Cellulitis of left upper limb; B19.20 Unspecified viral hepatitis C without hepatic coma; N39.0 Urinary tract infection, site not specified
CPT/HCPCS: 36415; 71010; 80048; 80053; 80061; 80202; 81003; 82550; 83036; 83605; 83880; 84443; 84484; 85025; 85610; 85651; 85730; 86850; 86900; 86901; 87040; 87070; 87205; 87522; 87902; 93005; 93925; 93970; J2310; J2405; S0077